=== PATIENT | female | born 1940 | race Caucasian/White ===

== ENCOUNTER → 2023-05-23 08:09 | Outpatient (REF) | payer OTHER, SELFPAY | LOC: MRI 3T 08:09 | PROVIDERS: ATTENDING PHYSICIAN Specialist; FAMILY PHYSICIAN Internal Medicine | DX: M54.16 Radiculopathy, lumbar region (principal) | CPT/HCPCS: 72148 ==

== ENCOUNTER 2023-06-10 03:21 | Emergency (ER) | payer OTHER, SELFPAY ==
[2023-06-10 03:24] VITALS: BP 157/64
--- NOTE | 2023-06-10 03:42 | ED.GENMED ---
History of Present Illness
<CHATA Page - Last Filed: 06/10/23 04:00>
General
Chief Complaint: Musculo-Skeletal Complaint
Source: patient
Exam Limitations: none
Time Seen by Provider: 06/10/23 03:29
Nursing documentation reviewed up to this point in time: agreed with
Travel History
Have you had any contact with someone who has COVID-19?: No
Do you have any symptoms of coronavirus? Fever > 100 degrees, chills, cough, shortness of breath, sore throat, loss of taste or smell, muscle aches, or headache?: No
History of Present Illness
History of Present Illness:
This is an 82 year old female, with a PMH of renal artery stenosis on eliquis, who presents to the ED c/o chest pain after a fall 2 days ago. Pt states her sneakers got caught in the cement and she fell onto her chest. She denies any head injury.
She states the pain has been worsening over the past couple of days and she has been taking tylenol for the pain, her last dose yesterday morning. She adds that she is also having right knee pain and left sided hip pain. Her knee is also bruised.
She denies any LOC, SOB, nausea, vomiting, lightheadedness, dizziness, neck pain, or back pain.
Past History
<CHATA Page - Last Filed: 06/10/23 04:00>
Past History
ED Past Medical History: Arrthythmia (Atrial Fibrillation), HTN and Hypercholesterolemia
ED Past Surgical History: Appendectomy, Cholecystectomy and Orthopedic
Social History
Tobacco: Former smoker
Alcohol: None
Drug: None
Personal:
Living: with family
Employment: Retired
Review of Systems
<CHATA Page - Last Filed: 06/10/23 04:00>
Review of Systems
Allergies reviewed?: Yes
All Other Systems: ROS reviewed and negative except as documented in HPI and ROS
Constitutional: Reports no symptoms
EENT: Reports no symptoms
Respiratory: Reports no symptoms; Denies trouble breathing
Cardiac: Reports chest pain; Denies palpitations or syncope
ABD/GI: Reports no symptoms; Denies nausea or vomiting
: Reports no symptoms
Musculoskeletal: Reports joint pain (Right knee pain) and muscle pain (left hip pain); Denies neck pain or back pain
Skin: Reports other (bruising on right knee)
Neurological: Reports no symptoms; Denies dizzy
Psychiatric: Reports no symptoms
Phy Exam
<CHATA Page - Last Filed: 06/10/23 04:00>
General Physical Exam
General Presentation: no apparent distress
General age: appears stated age
General Skin: warm and dry
General Habitus: normal and elderly
General Mental: alert
General Hydration: appears well hydrated
ENT Exam
ENT Exam: neck supple, normocephalic and swallowing well
Cardiovascular Exam
Cardiovascular Exam: regular rate/rhythm, no edema, no murmur and normal peripheral pulses
Heart Sounds: normal
Pulmonary Exam
Pulmonary Exam: lungs clear, no respiratory distress, no rales, no crackles, no rhonchi, no wheezing and no cough
Gastrointestinal Exam
Gastrointestinal Exam: normal bowel sounds, non tender, soft and non distended
Neurological Exam
Neurological Exam: alert and oriented x3
Musculoskeletal Exam
Musculoskeletal Exam: full ROM and other (ecchymoses noted along right knee, no effusion or edema noted. no ecchymoses or tenderness along left hip - good ROM. Pt ambulated well into the ER. Tenderness along left costal margin. no sternal tenderness)
Skin Exam
Skin Exam: warm/dry
Psychiatric Exam
Psychiatric Exam: normal mood/affect
Course
<CHATA Page - Last Filed: 06/10/23 04:00>
Orders/Labs/Results
Orders:
Orders
06/10/23 03:58
Oxycodone/Acetaminophen [Percocet 5/325] 1 tablet PO NOW STA
Knee, Right 4 or More Views [CR Knee- Right 4 Or More View*] Urgent
Comment:
Reason For Exam: fall, right ant and anteromed pain/bruising
Ribs, Left 3 View W/PA Chest CR [CR Ribs-left 3 Vw W/pa Chest] Urgent
Comment:
Reason For Exam: fall 2 d ago, L ant chest contusion
Vital Signs
Initial and Last Documented VS:
Initial Vital Signs
Temp Pulse Resp BP Pulse Ox
98.8 F 69 16 157/64 98
06/10/23 03:24 06/10/23 03:24 06/10/23 03:24 06/10/23 03:24 06/10/23 03:24
Last Documented Vital Signs
Temp Pulse Resp BP Pulse Ox
98.8 F 64 14 139/53 97
06/10/23 03:24 06/10/23 04:12 06/10/23 04:12 06/10/23 04:12 06/10/23 04:12
<Georgette Mesa, DO - Last Filed: 06/10/23 05:01>
Orders/Labs/Results
Orders:
Orders
06/10/23 03:58
Oxycodone/Acetaminophen [Percocet 5/325] 1 tablet PO NOW STA
Knee, Right 4 or More Views [CR Knee- Right 4 Or More View*] Urgent
Comment:
Reason For Exam: fall, right ant and anteromed pain/bruising
Ribs, Left 3 View W/PA Chest CR [CR Ribs-left 3 Vw W/pa Chest] Urgent
Comment:
Reason For Exam: fall 2 d ago, L ant chest contusion
Vital Signs
Initial and Last Documented VS:
Initial Vital Signs
Temp Pulse Resp BP Pulse Ox
98.8 F 69 16 157/64 98
06/10/23 03:24 06/10/23 03:24 06/10/23 03:24 06/10/23 03:24 06/10/23 03:24
Last Documented Vital Signs
Temp Pulse Resp BP Pulse Ox
98.8 F 64 14 139/53 97
06/10/23 03:24 06/10/23 04:12 06/10/23 04:12 06/10/23 04:12 06/10/23 04:12
<Georgette Mesa DO - Last Filed: 06/10/23 05:01>
*Radiology
Radiology exam reviewed: preliminary read by ED provider (Chest x-ray/left rib series and right knee x-ray showed no evidence of fracture. There is very mild bilateral interstitial fibrosis but no pleural effusion, no pneumothorax.)
*Pulse Oximetry
Patient hypoxic: no
*Critical Care Note
Total Time (30-74mins, 75-104mins- exclusive of procedures): Not Applicable
ED Attending Note
<CHATA Page - Last Filed: 06/10/23 04:00>
-
Portions of this chart may have been created with voice recognition software.� Occasional wrong word or��sound alike� substitutions may have occurred due to the inherent limitations of voice recognition software.
<Georgette Mesa DO - Last Filed: 06/10/23 05:01>
ED Attending Note
Patient seen and examined by attending physician: Yes
I performed the substantive portion of visit, reviewed & personally made and approve the management plan that is documented in note by myself or TESFAYE.: Yes
I performed a history and physical exam of patient and discussed management with resident, I reviewed resident's note and agree with documented findings and plan of care.: Yes
ED Attending Note:
This is an 82-year-old woman who resides at home with her . She has history of A-fib chronically maintained on Eliquis. History of right renal artery stenosis status post renal artery stent procedure March 12, 2023. She also has history
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 History of left hip replacement 2012, left knee replacement 2003.
She states 2 days ago she was walking quickly to get to the bathroom and inadvertently tripped while wearing her sneakers fell forward striking her chest on the floor. She denies head injury, no loss of consciousness but did 'knocked the wind out
of her' she was able to get herself up unassisted and go about her day but she continues with some left anterior chest discomfort that has worsened over the past day and a half, much worse at nighttime after lying down she has difficulty
repositioning/turning over in bed and marked difficulty sitting back up. She denies coughing or shortness of breath. She does note mild increased left anterior chest pain with deep breath. She has had no abdominal nor back pain, no nausea nor
vomiting, no diarrhea or constipation. She has had no headache, no dizziness or lightheadedness, no palpitations.
She took Tylenol yesterday afternoon with moderate but temporary relief.
She also notes some bruising and pain right anterior knee and mild left lateral hip pain that is only noted with ambulation. No weakness nor numbness.
Evaluated in this ED April 18 with complaints of left low back pain, unremarkable ED evaluation at that time, prescribed Oxy IR 5 mg for pain. She does admit that she has these at home but has not taken them due to side effect of constipation.
TRAUMA EXAM:
VITAL SIGNS: Vital signs reviewed, cooperative. 82-year-old woman who appears younger than stated age. Bright and alert, pleasant, appears in no acute distress. is accompanying.
DISTRESS: No active disease
EYES: Pupils reactive, no orbital trauma
NOSE: No deformity or epistaxis
FACE AND SCALP: No scalp or facial trauma, external canals no blood
NECK: Supple nontender
BACK: Back nontender, pelvis stable to compression
RESPIRATORY: No distress, breath sounds normal. There is moderate tenderness left anterior chest wall with mild deep soft tissue firmness superior aspect of the left breast. No definitive palpable mass, no ecchymosis. There is mild tenderness
left anterior distal costal margin. There is no crepitus nor palpable bony abnormality. There is no sternal tenderness to palpation. No tenderness to the right chest wall.
CARDIAC: No murmur, pulses equal and strong
ABDOMEN: Soft nontender bowel sounds normal
SKIN: Skin intact no bleeding, color normal
EXTREMITIES: There is mild to moderate dark purple ecchymosis right anterior/anteromedial knee with mild to moderate tenderness anterior oh medial aspect of the right knee along the medial aspect of the patella. There is no tenderness over the
medial meniscus. No joint effusion. Full knee range of motion without difficulty. No crepitus. No tenderness about the left hip. Full range of motion without difficulty nor pain.
NEUROLOGICAL: Alert, oriented, no motor deficits. Gait is sage and steady.
PSYCH: Mood affect normal
History and exam most consistent with left anterior chest wall contusion. Concern for left rib fracture. Pulmonary contusion, pneumothorax, cardiac contusion are unlikely, lungs are clear to auscultation, she has had no shortness of breath, no
palpitations.
She is noted to have a contusion and ecchymosis right anterior knee, concern for potential occult patellar fracture along the medial edge.
She has had some mild left hip pain only noted with ambulation but able to ambulate with steady unaided gait. Left hip fracture is unlikely.
Chronically maintained on Eliquis thus NSAIDs are to be avoided. Will give a dose of Percocet now for pain.
Will check left rib series/chest x-ray as well as right knee x-ray. No indication for left hip x-ray at this time.
She denies head injury, no loss of consciousness, no headache, no neurologic deficits-�CT of the head is not indicated as well.
06/10/2023 0500 AM
Patient resting comfortably.
Chest x-ray/left rib series shows no evidence of fracture, no pneumothorax nor pleural effusion.
Right knee x-ray shows no evidence of fracture.
I suspect left chest wall contusion and recommend supportive measures, warm compresses. She has Oxy IR at home, available to her which she can take at nighttime. Recommended daily fiber supplement such as Metamucil and or MiraLAX to combat
potential constipation while taking oxycodone.
Prompt follow-up with PCP for recheck.
Discharge Plan
Departure
Patient Disposition: Home (Routine Discharge)
Date of Disposition: 06/10/23
Time of Disposition: 04:56
Patient with high blood pressure during this ER visit?: No
Condition: Good
Discharge Problem:
Contusion of left chest wall, Contusion of right knee
Instructions: Contusion (DC), Blunt Chest Trauma (DC)
Prescriptions:
No Action
calcium carbonate-vitamin D3 [Oyster Shell Calcium-Vit D3] 500 MG tablet
500 mg PO DAILY
multivitamin with folic acid [Tab-A-Gallo] 1 TABLET tablet
1 tab PO DAILY
Eliquis 5 MG tablet
5 mg PO BID Qty: 60 0RF
Hold Instructions: Resume on 03/13/23.
ascorbic acid (vitamin C) [Vitamin C] 1,000 mg Tablet
1,000 mg PO DAILY
atorvastatin 10 mg Tablet
10 mg PO DAILY
verapamil 120 mg Tablet
120 mg PO BID
hydralazine 50 mg Tablet
50 mg PO BID
magnesium 250 mg Tablet
250 mg PO DAILY
valsartan-hydrochlorothiazide 320-12.5 mg Tablet
1 tab PO DAILY
coenzyme Q10 [Co Q-10] 400 mg Capsule
400 mg PO DAILY
acetaminophen 650 mg Tablet Extended Release
1,300 mg PO Q12H PRN (Reason: pain)
vitamin B complex Capsule
1 cap PO DAILY
Fish Oil 300-500 mg Capsule
1 cap PO DAILY
clopidogrel 75 mg Tablet
75 mg PO DAILY Qty: 90 0RF
oxycodone 5 mg tablet
5 mg PO Q8H PRN (Reason: Pain) Qty: 14 0RF
docusate sodium [Colace] 100 mg capsule
100 mg PO TID PRN (Reason: constipation) Qty: 14 0RF
Referrals:
Dieter Arnold, DO [Non-Admitting Privileges] - Call in 1-3 days for appt
Interventions
Interventions:
*Risk Screen - Suicide Last Done: 06/10/23 03:24
*General Assessment Last Done: 06/10/23 03:30
*Neglect/Abuse Screening Last Done: 06/10/23 03:24
ED- Fall Risk Assessment Last Done: 06/10/23 03:30
*ED COVID-19 Vaccine History Last Done: 06/10/23 03:24
ED-Musculoskeletal Assessment Last Done: 06/10/23 03:30
[2023-06-10] MEDS: PERCOCET 5/325 1 TABLET PO (04:09)
[2023-06-10 04:12] VITALS: BP 139/53
== END 2023-06-10 05:05 | disposition home or self-care (01) ==
LOC: EMR 03:21
PROVIDERS: EMERGENCY PHYSICIAN Emergency Medicine; FAMILY PHYSICIAN Internal Medicine
DX: S20.212A Contusion of left front wall of thorax, initial encounter (principal); S80.01XA Contusion of right knee, initial encounter; W19.XXXA Unspecified fall, initial encounter; I48.91 Unspecified atrial fibrillation; I70.1 Atherosclerosis of renal artery; I10 Essential (primary) hypertension; Z96.642 Presence of left artificial hip joint; Z87.891 Personal history of nicotine dependence; Z79.01 Long term (current) use of anticoagulants
CPT/HCPCS: 99283; 71101; 73564

== ENCOUNTER 2023-08-02 06:11 | Inpatient (IN) | payer OTHER, SELFPAY ==
--- NOTE | 2023-06-29 13:06 | CM ---
Patient is scheduled for an elective R TKR on 08/02/23. Spoke with patient prior to surgery via telephone. Introduced role of Orthopedic Navigator. Patient reports that she lives with her in a two story home. There are two steps to enter and
she has a first floor set. She currently functions independently. She has a cane, rolling walker and shower seat. PCP is Dr. Dieter Arnold.
Discussed orthopedic program and post surgical plans. Reviewed anticipated length of stay and that goal is for her to return home at discharge. Also reviewed outpatient PT. Patient is in agreement with tentative plan and will go directly to
outpatient PT at [facility]. She will have support from her when she goes home.
Patient will complete online education.
Plan: Orthopedic Navigator will remain available to assist with the care of patient and will reassess discharge needs after surgery.
[2023-07-13 09:03] VITALS: BMI 26.5
[2023-07-13 10:08] LABS: Hematocrit 34.9 % (37.0-47.0); Hemoglobin 11.4 g/dL (12.0-16.0); Mean Corp Hgb Conc. 32.7 g/dL (33.0-37.0); Mean Corpuscular Hgb 30.2 pg (27.0-31.0); Mean Corpuscular Volume 92.3 fL (81.0-99.0); Mean Platelet Volume 10.1 fL (7.4-10.4); Platelet Count 192 10^3/uL (130-400); Red Blood Cell Count 3.78 10^6/uL (4.20-5.40); Red Cell Dist. Width 13.2 % (11.5-14.5); White Blood Cell Count 6.7 10^3/uL (4.8-10.8)
[2023-07-13 10:21] LABS: ALT (SGPT) 20 U/L (0-35); AST (SGOT) 34 U/L (14-36); Albumin 4.4 g/dl (3.5-5.0); Alkaline Phosphatase 71 U/L (38-126); Blood Urea Nitrogen 30 mg/dl (7-17); Calcium 9.9 mg/dl (8.4-10.2); Carbon Dioxide 23 mmol/L (22-30); Chloride 103 mmol/L (98-107); Estimated Creatinine Clearance 30 ml/min; Glucose 96 mg/dl (70-99); Potassium 3.7 mmol/L (3.5-5.1); Sodium 135 mmol/L (135-145); Total Bilirubin 0.7 mg/dl (0.2-1.3); Total Protein 6.6 g/dl (6.3-8.2); eGFR 44.64
[2023-07-13 12:18] LABS: Glycohemoglobin (HgbA1c) 5.7 % (4.0-5.6)
[2023-08-02] VITALS (12 sets, daily range): BP systolic 116–147; BP diastolic 53–85; PULSE 75; O2SAT 93; BMI 26.5
[2023-08-02] MEDS: CELEBREX 200 MG PO (06:41)
[2023-08-02] MEDS: TYLENOL 650 MG PO ×4 (06:42→21:38)
[2023-08-02] MEDS: NORMOSOL-R 1000 IV ×2 (06:42→09:43)
[2023-08-02] MEDS: DILAUDID 0.25 MG IV ×3 (08:55→09:26)
[2023-08-02] MEDS: ROXICODONE 5 MG PO (09:42)
[2023-08-02] MEDS: ULTRAM PO ×2 (10:30→21:53)
[2023-08-02] MEDS: TYLENOL PO (10:41)
--- NOTE | 2023-08-02 12:00 | PTCARENOTE ---
pt admitted to room 2111 at 1000 from PACU. pt arrived awake and alert. pt oriented to room, bed controls, call griffin and plan of care with verbalized understanding. admission database and assessment as documented. Telemetry reading SR in 60's.
Right knee aqua cell dressing clean and dry. neurovascular checks WNL. pt assisted to bedside commode w/RW and assist of 2. c/o slight dizziness at first when sitting on side of bed. dizziness resolved. pt w/stress incontinence when standing.
voided a large amount of yellow urine on commode. Thigh High Teds stockings removed due to being saturated with urine. new hose ordered. will observe.
[2023-08-02] MEDS: ULTRAM 25 MG PO ×2 (12:41→17:04)
[2023-08-02] MEDS: ANCEF 5 IV ×2 (14:09→21:38)
[2023-08-02] MEDS: CALAN 120 MG PO (17:03)
[2023-08-02] MEDS: ELIQUIS 2.5 MG PO (17:04)
[2023-08-02] MEDS: LIPITOR 10 MG PO (17:04)
[2023-08-02] MEDS: COLACE 100 MG PO (20:15)
[2023-08-02] MEDS: SENOKOT 17.1999999999999993 MG PO (20:15)
[2023-08-02] MEDS: DECADRON 4 MG PO (20:16)
[2023-08-02] MEDS: BACTROBAN 2% OINTMENT 1 APPLIC NASAL (20:18)
[2023-08-02] MEDS: NEURONTIN 300 MG PO (21:38)
[2023-08-03 03:08] VITALS: BP 121/60
[2023-08-03] MEDS: TYLENOL PO ×2 (05:18)
[2023-08-03 07:00] VITALS: BP 135/57
--- NOTE | 2023-08-03 08:15 | CM ---
Addendum entered by Sylvia Nazario 08/03/23 10:07:
Patient did well in therapy. She has no concerns about going home.
Original Note:
Reviewed chart and held rounds with PT, OT and nursing. Patient admitted as planned for elective R TKR. Met with patient at bedside. Confirmed information previously obtained for assessment. Also discussed discharge plans. The plan is for patient to
return home at discharge. She will have support from her when she goes home. Patient will go directly to outpatient PT and will go to [facility]. She has an appointment scheduled for Wednesday, 08/03. Reviewed need to schedule two week follow
up with PA at Dr. Low' office for removal of melissa.
Patient has a rolling walker, shower seat and cane.
She will use [facility] pharmacy for discharge prescriptions.
Discharge plans were reviewed with patient's on 08/02/23.
[2023-08-03] MEDS: TYLENOL 650 MG PO (08:48)
[2023-08-03] MEDS: ULTRAM 25 MG PO (08:48)
[2023-08-03] MEDS: MAG-TAB SR 84 MG PO (08:49)
[2023-08-03] MEDS: COLACE 100 MG PO (08:49)
[2023-08-03] MEDS: ELIQUIS 2.5 MG PO (08:49)
[2023-08-03] MEDS: SENOKOT 17.1999999999999993 MG PO (08:49)
[2023-08-03] MEDS: DECADRON 4 MG PO (08:49)
[2023-08-03] MEDS: CALAN 120 MG PO (08:49)
[2023-08-03 08:55] VITALS: BP 135/57; BP 144/66; PULSE 55; O2SAT 94
--- NOTE | 2023-08-03 09:40 | W.PN.ORTHO ---
Today's Communication / Plan
-
d/c
Assessment
.
Distal Motor Intact: Yes
Dressing:
Clean, dry and intact.
Plan
.
Surgery / Date: Dada Low 08/02/23
DVT Prophylaxis: Other (Eliquis)
Activity:
Out of bed.
PT/OT
Discharge Plan: Home w/ Outpatient PT
Subjective
.
.:
Patient resting comfortably.
Vital Signs and Labs
.
Vital Signs and Labs:
Lab Results
07/13/23 09:00
07/13/23 09:00
Temp Pulse Resp BP Pulse Ox
97.7 F 55 18 135/57 95
08/03/23 07:00 08/03/23 07:00 08/03/23 07:00 08/03/23 07:00 08/03/23 07:00
Non-invasive Hgb result: 11.4
Physical Exam
-
HEENT: No pallor, cyanosis, or jaundice. Throat clear.
NECK: Supple. No JVD.
RESPIRATORY: Lungs clear to auscultation.
CVS: S1, S2 normal. RRR.� No murmur, rub or gallop.
ABDOMEN: Soft, non-tender. No distension. BS+/normal.
EXTREMITIES: strength equal, no calf pain with palpation
BOAT DECKHAND: AOx3. No focal deficits. transaction advisory services manager grossly intact
[2023-08-03 09:52] VITALS: BP 120/49; PULSE 60; O2SAT 92
--- NOTE | 2023-08-03 10:00 | W.DS.TRANS ---
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
-
Discharge Instructions:
Sleep Apnea Risk Intermediate
Discharge Diagnosis/Procedures R TKA Dr. Low 08/02/23
Diet As tolerated
Activity With Walker
Driving Restrictions No driving
Bathing Restrictions OK to Shower
Other Services PT
Instructions:
Stand-Alone Forms: Total Hip/Knee Replacement D/C
Changes to Home Medications: Yes
Discharge Medications:
DC Medications w/original date entered in [facility]
calcium carbonate 500 mg-vitamin D3 5 mcg (200 unit) tablet (Oyster Shell Calcium-Vitamin D3) 500 mg PO DAILY Supplement 09/26/12
multivitamin with folic acid 400 mcg tablet (Tab-A-Gallo) 1 tab PO DAILY Supplement 09/26/12
ascorbic acid (vitamin C) 1,000 mg tablet (Vitamin C) 1,000 mg PO DAILY Supplement 11/09/22
atorvastatin 10 mg tablet 10 mg PO DAILY High Cholesterol 11/09/22
coenzyme Q10 400 mg capsule (Co Q-10) 400 mg PO DAILY Supplement 11/09/22
magnesium 250 mg tablet 250 mg PO DAILY Electrolyte Repletion 11/09/22
valsartan 320 mg-hydrochlorothiazide 12.5 mg tablet 1 tab PO DAILY Blood Pressure 11/09/22
verapamil 120 mg tablet 120 mg PO BID Arrhythmia 11/09/22
vitamin B complex 1 cap PO DAILY Supplement 03/09/23
omega-3 fatty acids-fish oil 300 mg-500 mg capsule (Fish Oil) 1 cap PO DAILY High Cholesterol 03/12/23
mupirocin 2 % topical ointment 1 applic topical BID infection prevention #1 tube 07/28/23
acetaminophen 650 mg tablet,extended release 1,300 mg (2 x 650 mg) PO TID #0 tabs 08/03/23
apixaban 5 mg tablet (Eliquis) 2.5 mg (1/2 x 5 mg) PO BID blood clot prevention/afibb #1 tab 08/03/23
dexamethasone 4 mg tablet 4 mg PO BID inflammation #6 tabs 08/03/23
docusate sodium 100 mg capsule (Colace) 100 mg PO TID constipation #14 caps 08/03/23
famotidine 20 mg tablet 20 mg PO HS GI prophylaxis #30 tabs 08/03/23
gabapentin 300 mg capsule 300 mg PO HS sleep/pain #10 caps 08/03/23
hydralazine 50 mg tablet 50 mg PO BID Blood Pressure #0 tabs 08/03/23
magnesium hydroxide 400 mg/5 mL oral suspension (Milk of Magnesia) 30 ml PO HS PRN Constipation #1 mL 08/03/23
oxycodone 5 mg tablet 5 mg PO Q6H PRN 1 tab moderate pain, 2 tabs severe pain #30 tabs 08/03/23
sennosides 8.6 mg tablet (Senokot) 17.2 mg (2 x 8.6 mg) PO BID laxative #2 tabs 08/03/23
Home Medication Changes
apixaban 5 mg tablet (Eliquis) 2.5 mg (1/2 x 5 mg) PO BID blood clot prevention/afibb #1 tab 08/03/23
dexamethasone 4 mg tablet 4 mg PO BID inflammation #6 tabs 08/03/23
famotidine 20 mg tablet 20 mg PO HS GI prophylaxis #30 tabs 08/03/23
gabapentin 300 mg capsule 300 mg PO HS sleep/pain #10 caps 08/03/23
hydralazine 50 mg tablet 50 mg PO BID Blood Pressure #0 tabs 08/03/23
oxycodone 5 mg tablet 5 mg PO Q6H PRN 1 tab moderate pain, 2 tabs severe pain #30 tabs 08/03/23
Pending Results: No
[2023-08-03] MEDS: BACTROBAN 2% OINTMENT NASAL (10:06)
[2023-08-03] MEDS: ROXICODONE 5 MG PO (10:06)
[2023-08-03] MEDS: DECADRON 4 MG IV (10:06)
== END 2023-08-03 12:58 | disposition home or self-care (01) | DRG 470 ==
LOC: 2 SOUTH 06:11
PROVIDERS: ADMITTING PHYSICIAN Specialist; FAMILY PHYSICIAN Internal Medicine
PROC: 0SRC0J9 Replacement of Right Knee Joint with Synthetic Substitute, Cemented, Open Approach (ICD-10-PCS; 2023-08-02)
DX: M17.11 Unilateral primary osteoarthritis, right knee (principal); I48.0 Paroxysmal atrial fibrillation; I12.9 Hypertensive chronic kidney disease with stage 1 through stage 4 chronic kidney disease, or unspecified chronic kidney disease; N18.30 Chronic kidney disease, stage 3 unspecified; E78.5 Hyperlipidemia, unspecified; I70.1 Atherosclerosis of renal artery; Z79.01 Long term (current) use of anticoagulants
CPT/HCPCS: 36415; 73560; 80053; 83036; 85027; 86850; 86900; 86901; 87070; 97110; 97116; 97162; 97166; 97530; 97535; C1713; C1776

== ENCOUNTER → 2023-11-05 08:58 | Outpatient (REF) | payer OTHER, SELFPAY | LOC: DHVS 08:58 | PROVIDERS: ATTENDING PHYSICIAN Physician Assistant; FAMILY PHYSICIAN Internal Medicine | DX: I70.1 Atherosclerosis of renal artery (principal) | CPT/HCPCS: 93975 ==

== ENCOUNTER → 2023-11-10 10:41 | Outpatient (REF) | payer OTHER, SELFPAY ==
[2023-11-10 12:23] LABS: Blood Urea Nitrogen 25 mg/dl (7-17); Calcium 10.2 mg/dl (8.4-10.2); Carbon Dioxide 33 mmol/L (22-30); Chloride 101 mmol/L (98-107); Glucose 89 mg/dl (70-99); Potassium 4.2 mmol/L (3.5-5.1); Sodium 138 mmol/L (135-145); eGFR 49.24
== END ==
LOC: REG 10:41
PROVIDERS: ATTENDING PHYSICIAN Surgery Vascular Surgery; FAMILY PHYSICIAN Internal Medicine
DX: I70.1 Atherosclerosis of renal artery (principal)
CPT/HCPCS: 36415; 80048

== ENCOUNTER → 2023-11-18 08:24 | Outpatient (REF) | payer OTHER, SELFPAY | LOC: RAD 08:24 | PROVIDERS: ATTENDING PHYSICIAN Surgery Vascular Surgery; FAMILY PHYSICIAN Internal Medicine; REFERRING PHYSICIAN Physician Assistant | DX: I70.1 Atherosclerosis of renal artery (principal) | CPT/HCPCS: 74174; Q9967 ==

== ENCOUNTER 2024-11-09 06:11 | Day surgery (SDC) | payer OTHER, SELFPAY ==
[2024-11-09] VITALS (13 sets, daily range): BP systolic 121–165; BP diastolic 56–109; BMI 27.3
--- NOTE | 2024-11-09 10:11 | ITS.CL.ABL ---
Network Engineer - Ablation
Ablation
Procedure Report:
AFIB ablation and Watchman Implantation:
Ms. Olguin is a very pleasant 84 yr old woman with symptomatic paroxysmal AF and atrial flutters, is recommended for atrial fibrillation ablation.
Date of the Procedure:
11/10/2023
Indications:
Paroxysmal atrial fibrillation / atrial flutter
Pre-Operative Diagnosis:
Paroxysmal atrial fibrillation / atrial flutter
Post-Operative Diagnosis:
Paroxysmal atrial fibrillation / atrial flutter
Procedure Performed:
Atrial fibrillation ablation with Pulsed-Field approach for pulmonary vein isolation
Roof dependent atrial flutter ablation
Posterior wall isolation
Focal atrial tachycardia / Microreentry flutter
Performing Physician:
Jose C Forbes MD
Assistants:
EP staff
Anesthesia:
See anesthesia records
Detailed Description of the Procedure:
Written informed consent was obtained from the patient after a full explanation of the risks and benefits of the procedure including the risks of sedation and anesthesia.
The patient was brought to the electrophysiology laboratory in stable condition in fasting state. Continuous electrocardiographic and hemodynamic monitoring was initiated.
The initial rhythm was sinus.
The procedure site was meticulously prepared with surgical scrub and allowed to dry with no pooling. Sterile draping was applied to cover the procedure site. The image intensifier was draped with sterile bag and positioned over the patient. After
infusion of local anesthetic, vascular access was obtained under ultrasound guidance and sheaths were placed over guide wire as detailed below.
Sheath and Catheter Placement:
The following catheters / sheaths were placed
Sheaths:
��������� 17Fr steerable sheath ([email or web address], [employer]) in right femoral
��������� 9Fr in right femoral vein
Catheters:
��������� SOMMER HD Grid mapping catheter � at locations of RA, LA
��������� Farawave� PFA catheter
��������� ICE catheter -AcuNav - at locations of RA, SVC, and RV.
Intracardiac ECHO:
An 8-Latvian AcuNav intracardiac ECHO (ICE) probe was advanced through the 9-Latvian sheath in the right femoral vein into the right atrium under fluoroscopic and ICE ultrasound image guidance and a baseline ECHO study was performed. The left atrial
size was dilated. There was moderate tricuspid regurgitation. The aortic valve was grossly normal. There was normal left ventricular systolic functions. There is no pericardial effusion. All the four veins were identified and has flow identified.
There was good flow noted in the YESI.
During the procedure, ICE was used for monitoring of complications, guidance of trans-septal puncture, monitor the catheter position and tracking ablation lesions. No change in the pericardial space noted throughout the procedure.
Trans-septal Puncture:
Heparin was initiated and infused to maintain appropriate ACT. A pigtail guidewire was advanced through the 8-Latvian sheath in the right femoral vein into the superior vena cava under fluoroscopic and ICE guidance. The 9-Latvian sheath was exchanged
for a Faradrive sheath which was advanced into the superior vena cava. A transseptal VersaCross RF pigtail via Faradrive connect system was utilized to perform the trans-septal puncture. The apparatus was withdrawn until it was in contact with the
fossa ovalis. The position was adjusted based on fluoroscopy and ultrasound images from ICE. Under fluoroscopic, hemodynamic and ICE ultrasound guidance, left atrium was cannulated by applying RF energy. Once atrial septum was cannulated, the
pigtail wire was advanced into the left atrium. The guide wire was advanced into the left superior pulmonary vein. Both the sheath and the dilator was advanced into the left atrium. The dilator with the needle was withdrawn. Blood was aspirated from
the Faradrive sheath and arterial blood confirmed. The sheath was flushed. Saline injection noted into the left atrium on ICE. The mapping catheter was advanced in the sheath into the left pulmonary vein. Left atrial pressure was measured.
3D Electroanatomic Mapping:
Using the HD Grid catheter advanced through sheath into the left atrium, an electroanatomic map (EAM) of the left atrium was created using [employer] mapping system. The map was used for localization of catheter position and tacking of ablation
lesions.
The EAM of the left atrium showed 4 pulmonary veins with all 4 veins electrically connected to the body the LA. It showed only scattered areas of low voltage on the posterior wall. The LA was mildly dilated in size.
Following the EAM, preparation were made for ablation.
Ablation:
Ablation # 1: Pulmonary vein Isolation:
Glycopyrrolate 0.2 mg was given prior to the placement of ablation. Using TalkTo pulsed field ablation system, pulmonary vein isolation was achieved. First the ablation catheter was placed in the LSPV and ostial ablation lesions were performed in
an �[place]� formation of the Farawave configuration and a counter clock peoples rotation was done and ablated to cover the area between the electrodes. Then the catheter was placed on the antral location in �[place]� configuration and multiple ablation
lesions were placed circumferentially on the antrum of the vein.
In the similar fashion, the LIPV were isolated.
Then the catheter was moved to right sided veins. The ostial and antral ablations were placed as noted above.
While doing the left sided veins patient went into atrial flutter.
Ablation #2: Roof dependent flutter ablation
The flutter was coming from the LA. The rhythm was revolving around the YESI involving the roof of the LA.
Using the pulsed field ablation catheter, the catheter was placed between left superior pulmonary vein and right superior pulmonary vein with series of overlapping ablation lesions placed.
Ablation # 3: Posterior wall isolation:
Using the pulsed field ablation catheter, the catheter was placed on the posterior wall and moved around the posterior wall to have adequate contact and ablations were placed isolating the posterior wall.
Ablation #4: Micro-reentry flutter / atrial tachycardia
The tachycardia was mapped using HD grid and was coming from the base of the YESI at the junction of the roof line and the YESI. The HD grid bump terminated the tachycardia at that origin.
The tachycardia restarted spontaneously and was sustained.
The ablation catheter � Farawave catheter from [employer] system was placed at the junction of the YESI and the roof line and at the base of the YESI and ablation was applied.
The tachycardia terminated into sinus rhythm.
EPS and Confirmation of the PVI and bidirectional block:
Following achievement of entrance block at the pulmonary veins, pacing from the HD catheter in each of the four veins at 10 milliamps for 2 milliseconds showed entrance and exit block. All PVI were rechecked at the end of the case and remained
isolated. Entrance and exit block were demonstrated in all veins.
Post ablation Electroanatomic mapping:
Once ablation was completed, the EAM of the LA was done again in sinus rhythm with excellent demarcation of LA myocardium and isolated antral tissue.
The YESI had healthy signals and was not isolated.
Procedure End
ICE study was done again that showed no epicardial accumulation. No complications noted.
Following the completion of the EP study, catheters were removed. Protamine 40 mg was given at the end of the procedure and ACT was checked repeatedly. The sheaths were removed and hemostasis achieved with �Figure of 8� and manual compression after
acceptable ACT is achieved.
Left atrial Pressure:
Pre-ablation: Mean LA pressure was 23mmHg
Post-ablation: Mean LA pressure was 17mmHg
Post ablation: Mean RA pressure was 11 mmHg.
Estimated Blood loss:
<10 cc
Specimens Removed:
None.
Implants / Devices:
None
Urine output:
None
Packs / Drains/ Tubes:
None
Instrument / Sponge Count Correct:
Yes
Complications of the Procedure:
None
Condition of Patient at Time of Transfer:
Hemodynamically stable with no neurological or vascular compromise.
Summary:
Successful atrial fibrillation ablation with Pulsed Field approach for pulmonary vein isolation, roof dependent flutter ablation and posterior wall isolation, micro-reentry flutter/ atrial tachycardia
Figures from the Procedure:
Figure 1: The electroanatomic mapping (EAM) of the left atrium with bipolar voltage (purple indicates normal electrical activity with causey as no myocardial muscle electric activity indicating a line of block or scar.
[2024-11-09] MEDS: DIOVAN 320 MG PO (11:41)
[2024-11-09] MEDS: APRESOLINE 50 MG PO (11:41)
[2024-11-09 12:48] LABS: ACT-LR - POC > 397 Seconds (116-155)
[2024-11-09 12:48] LABS: ACT-LR - POC > 397 Seconds (116-155)
--- NOTE | 2024-11-09 14:13 | W.PN.UPDATE ---
Update Note
Progress Note Update
84 yo WF s/p PVI (same day). She denies cp, sob, ruth diet, voiding, R fem site c/d/i no HT, soft, EKG SR. she will resume Pradaxa tonight at home. Activity restrictions reviewed. 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 She is for d/c home after 230p if groin
stable.
== END 2024-11-09 14:57 | disposition home or self-care (01) ==
LOC: CATH 06:11
PROVIDERS: ATTENDING PHYSICIAN Internal Medicine Cardiovascular Disease; FAMILY PHYSICIAN Internal Medicine
DX: I48.0 Paroxysmal atrial fibrillation (principal); I48.92 Unspecified atrial flutter; I10 Essential (primary) hypertension; E78.5 Hyperlipidemia, unspecified; Z79.899 Other long term (current) drug therapy; Z79.01 Long term (current) use of anticoagulants
CPT/HCPCS: C1732; C1894; C1730; C1769; C1892; C1759; 85347; 86850; 86900; 86901; 93005; 93655; 93656; 93657; C1733; C1766

== ENCOUNTER 2024-12-20 12:24 | Emergency (ER) | payer OTHER, SELFPAY ==
[2024-12-20 12:27] VITALS: BP 181/66
[2024-12-20 12:42] VITALS: BP 146/53; BMI 26.6
[2024-12-20 13:00] VITALS: BP 127/68
--- NOTE | 2024-12-20 13:16 | ED.GENMED ---
History of Present Illness
General
Chief Complaint: Abdominal Pain
Time Seen by Provider: 12/20/24 12:48
History of Present Illness
History of Present Illness:
84-year-old female with history of paroxysmal A-fib status post ablation (currently on Pradaxa, hypertension and hyperlipidemia presents to the emergency department for evaluation of epigastric pain associated with a lump to the upper abdomen.
First noticed the lump several weeks ago but this was nonpainful until yesterday. Denies any nausea vomiting or diarrhea. No fevers or chills. No history of intra-abdominal surgeries.
Past History
Past History
ED Past Medical History: Arrthythmia (Atrial Fibrillation), HTN and Hypercholesterolemia
ED Past Surgical History: Appendectomy, Cholecystectomy and Orthopedic
Social History
Tobacco: Former smoker
Alcohol: None
Drug: None
Personal:
Living: with family
Employment: Retired
Review of Systems
Review of Systems
Allergies reviewed?: Yes
All Other Systems: ROS reviewed and negative except as documented in HPI and ROS
Phy Exam
Physical Exam
Physical Exam:
GEN: Well appearing, NAD, WDWN
HEENT: Oral mucosa moist, no scleral icterus
Cardiac: Regular rate
Lung: No respiratory distress, no tachypnea
Abdomen: Soft, exquisitely tender to the epigastrium with a protuberance however no clear mass identified
MSK: No gross deformity or injuries
Skin: Good color, no pallor or jaundice, no rashes
Neuro: AO x3, moves all extremities freely
Psych: Calm, cooperative
Course
Orders/Labs/Results
Orders:
Orders
12/20/24 13:05
CT Abd/Pel (IV only)-DH only Urgent
Comment:
Reason For Exam: epigastric pain/lump
12/20/24 13:56
Complete Blood Count/With Diff Urgent
Comprehensive Metabolic Panel Urgent
Lipase Urgent
Comment: ADD ON
12/20/24 15:49
Add On- LAB Urgent
Tests Added?: lipase
Abnormal Lab Results
12/20/24
13:56
RBC 3.49 L 10^6/uL
(4.20-5.40)
Hgb 10.7 L g/dL
(12.0-16.0)
Hct 31.8 L %
(37.0-47.0)
Absolute Monos (auto) 0.7 H 10^3/uL
(0.1-0.6)
Lymphocytes % 19.7 L %
(20.5-51.1)
Carbon Dioxide 31 H mmol/L
(22-30)
BUN 26 H mg/dl
(7-17)
Creatinine 1.2 H mg/dL
(0.6-1.0)
Total Protein 6.0 L g/dl
(6.3-8.2)
12/20/24 13:56
12/20/24 13:56
Vital Signs
Initial and Last Documented VS:
Initial Vital Signs
Temp Pulse Resp Pulse Ox
98.2 F 71 18 98
12/20/24 12:26 12/20/24 12:26 12/20/24 12:26 12/20/24 12:26
Last Documented Vital Signs
Temp Pulse Resp BP Pulse Ox
98.2 F 71 18 136/58 97
12/20/24 12:26 12/20/24 12:26 12/20/24 12:26 12/20/24 14:00 12/20/24 15:15
MDM/Problems Addressed
MDM/Problems Addressed:
Patient's palpable lump correlates with sebaceous cyst seen on CT scan. Otherwise labs and imaging unremarkable. May be acutely inflamed sebaceous cyst given the localized pain and will place on antibiotics, recommend primary care follow-up
*Pulse Oximetry
SaO2: 99
Patient hypoxic: no
*Critical Care Note
Total Time (30-74mins, 75-104mins- exclusive of procedures): Not Applicable
ED Attending Note
-
Portions of this chart may have been created with voice recognition software.� Occasional wrong word or��sound alike� substitutions may have occurred due to the inherent limitations of voice recognition software.
Discharge Plan
Departure
Patient Disposition: Home (Routine Discharge)
Date of Disposition: 12/20/24
Time of Disposition: 16:36
Patient with high blood pressure during this ER visit?: No
Discharge Problem:
Acute epigastric pain, Sebaceous cyst
Instructions: Abdominal Pain
Prescriptions:
New
cephalexin 500 mg capsule
500 mg PO Q8H Qty: 15 0RF
No Action
calcium carbonate-vitamin D3 [Oyster Shell Calcium-Vit D3] 500 MG tablet
500 mg PO DAILY
multivitamin with folic acid [Tab-A-Gallo] 1 TABLET tablet
1 tab PO DAILY
ascorbic acid (vitamin C) [Vitamin C] 1,000 mg Tablet
1,000 mg PO DAILY
atorvastatin 10 mg Tablet
10 mg PO DAILY
verapamil 120 mg Tablet
120 mg PO BID
magnesium 250 mg Tablet
250 mg PO DAILY
valsartan-hydrochlorothiazide 320-12.5 mg Tablet
1 tab PO DAILY
coenzyme Q10 [Co Q-10] 400 mg Capsule
400 mg PO DAILY
vitamin B complex Capsule
1 cap PO DAILY
Fish Oil 300-500 mg Capsule
1 cap PO DAILY
sennosides [Senokot] 8.6 mg tablet
17.2 mg PO BID Qty: 2 0RF
famotidine 20 mg tablet
20 mg PO HS Qty: 30 0RF
Rx Instructions:
post-op
magnesium hydroxide [Milk of Magnesia] 400 mg/5 mL suspension
30 ml PO HS PRN (Reason: Constipation) Qty: 1 0RF
dexamethasone 4 mg tablet
4 mg PO BID Qty: 6 0RF
Rx Instructions:
take with food
post-op use only
acetaminophen 650 mg Tablet Extended Release
1,300 mg PO TID Qty: 0 0RF
docusate sodium [Colace] 100 mg capsule
100 mg PO TID Qty: 14 0RF
hydralazine 50 mg Tablet
50 mg PO BID Qty: 0 0RF
Rx Instructions:
hold systolic blood pressure <135 if taking opioid
dabigatran etexilate [Pradaxa] 150 mg Capsule
150 mg PO BID
Referrals:
Dieter Arnold DO [Family Provider, Internal Medicine]
Interventions
Interventions:
*Risk Screen - Suicide Last Done: 12/20/24 15:17
*General Assessment Last Done: 12/20/24 12:42
*Neglect/Abuse Screening Last Done: 12/20/24 15:17
*ED- Fall Risk Assessment Last Done: 12/20/24 12:42
*ED COVID-19 Vaccine History Last Done: 12/20/24 12:42
LL-Ahchjh-Dgmnbhdfrb Assessment Last Done: 12/20/24 12:45
Discharge Date and Time
Print Language: YI
[2024-12-20 14:00] VITALS: BP 136/58
[2024-12-20 14:04] LABS: Hematocrit 31.8 % (37.0-47.0); Hemoglobin 10.7 g/dL (12.0-16.0); Mean Corp Hgb Conc. 33.6 g/dL (33.0-37.0); Mean Corpuscular Volume 91.1 fL (81.0-99.0); Nucleated Red Blood Cells % 0 %; Platelet Count 232 10^3/uL (130-400); Red Cell Dist. Width 12.8 % (11.5-14.5)
[2024-12-20 14:45] LABS: ALT (SGPT) 12 U/L (0-35); AST (SGOT) 22 U/L (14-36); Albumin 3.9 g/dl (3.5-5.0); Alkaline Phosphatase 55 U/L (38-126); Blood Urea Nitrogen 26 mg/dl (7-17); Calcium 10.0 mg/dl (8.4-10.2); Carbon Dioxide 31 mmol/L (22-30); Chloride 102 mmol/L (98-107); Estimated Creatinine Clearance 29 ml/min; Glucose 90 mg/dl (70-99); Potassium 3.9 mmol/L (3.5-5.1); Sodium 136 mmol/L (135-145); Total Protein 6.0 g/dl (6.3-8.2); eGFR 44.08
[2024-12-20 16:31] LABS: Lipase 170 U/L (23-300)
[2024-12-20 16:40] VITALS: BP 140/53
[2024-12-20 16:49] VITALS: BP 140/53
== END 2024-12-20 17:26 | disposition home or self-care (01) ==
LOC: EMR 12:24
PROVIDERS: Physician Assistant; EMERGENCY PHYSICIAN Emergency Medicine; FAMILY PHYSICIAN Internal Medicine
DX: R10.13 Epigastric pain (principal); L72.3 Sebaceous cyst; I48.0 Paroxysmal atrial fibrillation; I10 Essential (primary) hypertension; E78.00 Pure hypercholesterolemia, unspecified; Z79.01 Long term (current) use of anticoagulants; Z87.891 Personal history of nicotine dependence
CPT/HCPCS: 99284; 74177; 80053; 83690; 85025; Q9967

== ENCOUNTER → 2024-12-29 11:07 | Outpatient (REF) | payer OTHER, SELFPAY | LOC: RAD 11:07 | PROVIDERS: ATTENDING PHYSICIAN Surgery Vascular Surgery; FAMILY PHYSICIAN Internal Medicine | DX: I70.1 Atherosclerosis of renal artery (principal) | CPT/HCPCS: 93975 ==